=== PATIENT | male | born 1935 | race Caucasian/White ===

== ENCOUNTER 2018-11-12 15:54 | Emergency (ER) | payer MEDICARE, OTHER ==
[~2018-11-12] VITALS: Ht 170.2 cm; Wt 79.1 kg
[2018-11-12 16:21] VITALS: BP 139/75
[2018-11-12] MEDS ORDERED: TETanus/Pertussis (Acell)/Diphther VAC/PF (Tdap-Adult) 0.5ml syringe IM ONE (16:45)
[2018-11-12] MEDS ORDERED: LIDOcaine 1% w/EPI 1:200,000 injection 10mL vial IM ONE (16:45)
[2018-11-12] MEDS ORDERED: LIDOcaine 1% W/epiNEPHrine 1:100,000 20ml vial IJ ONE (16:50)
== END 2018-11-12 18:34 | disposition home or self-care (01) ==
LOC: ER 15:55
DX: S81.812A Laceration without foreign body, left lower leg, initial encounter (principal); Z88.2 Allergy status to sulfonamides; Z88.1 Allergy status to other antibiotic agents; Z88.8 Allergy status to other drugs, medicaments and biological substances; X58.XXXA Exposure to other specified factors, initial encounter; Y93.89 Activity, other specified; Y92.89 Other specified places as the place of occurrence of the external cause; Y99.8 Other external cause status
CPT/HCPCS: 12002; 73590; 90471; 99283

== ENCOUNTER 2019-02-23 10:55 | Emergency (ER) | payer MEDICARE, OTHER ==
[~2019-02-23] VITALS: Ht 170.2 cm; Wt 77.0 kg
[~2019-02-23 10:55] MED LIST: LIDOcaine 1% 30ml preserv. free vial ONE
[2019-02-23 11:04] VITALS: BP 149/78
[2019-02-23] MEDS ORDERED: DOXY100C2 PO (13:46)
== END 2019-02-23 13:59 | disposition home or self-care (01) ==
LOC: ER 10:56
DX: K61.1 Rectal abscess (principal); R05 Cough; J02.9 Acute pharyngitis, unspecified; R53.83 Other fatigue; I25.10 Atherosclerotic heart disease of native coronary artery without angina pectoris; Z95.0 Presence of cardiac pacemaker; Z88.2 Allergy status to sulfonamides; Z88.1 Allergy status to other antibiotic agents; Z79.899 Other long term (current) drug therapy
CPT/HCPCS: 46040; 71045; 99284; J2001

== ENCOUNTER 2019-02-25 11:28 | Emergency (ER) | payer MEDICARE, OTHER ==
[~2019-02-25] VITALS: Ht 170.2 cm; Wt 70.0 kg
[~2019-02-25 11:28] MED LIST changes: +DOXY100C2 PO; -LIDOcaine 1% 30ml preserv. free vial ONE
[2019-02-25 11:40] VITALS: BP 151/71
[2019-02-25] MEDS ORDERED: BENZ-16 PO (12:25)
== END 2019-02-25 12:45 | disposition home or self-care (01) ==
LOC: ER 11:30
DX: J40 Bronchitis, not specified as acute or chronic (principal); I25.10 Atherosclerotic heart disease of native coronary artery without angina pectoris; Z95.0 Presence of cardiac pacemaker; Z88.2 Allergy status to sulfonamides; Z88.1 Allergy status to other antibiotic agents; Z88.8 Allergy status to other drugs, medicaments and biological substances; Z79.899 Other long term (current) drug therapy
CPT/HCPCS: 99283

== ENCOUNTER 2019-07-09 13:45 | Outpatient (CLI) | payer MEDICARE, OTHER | END 2019-07-09 15:05 | disposition home or self-care (01) | LOC: WOUND CARE 13:45 → EDSTATUS 14:00 → WOUND CARE 15:05 | PROVIDERS: ATTEND Nurse Practitioner Family | DX: L89.890 Pressure ulcer of other site, unstageable (principal); I25.2 Old myocardial infarction; E78.5 Hyperlipidemia, unspecified; H26.9 Unspecified cataract; H93.19 Tinnitus, unspecified ear; F41.9 Anxiety disorder, unspecified; Z85.828 Personal history of other malignant neoplasm of skin; Z87.891 Personal history of nicotine dependence; Z95.0 Presence of cardiac pacemaker | CPT/HCPCS: G0463 ==

== ENCOUNTER 2019-07-29 18:30 | Emergency (ER) | payer MEDICARE, OTHER ==
[~2019-07-29] VITALS: Ht 170.2 cm; Wt 75.0 kg
[2019-07-29] MEDS ORDERED: CLIN150C8 PO (19:22)
[2019-07-29] MEDS ORDERED: ondansetron 4mg rapidly disintigrating tab PO ONE (19:25)
[2019-07-29] MEDS ORDERED: clindamycin 150mg capsule PO ONE (19:25)
[2019-07-29 19:48] VITALS: BP 155/79
== END 2019-07-29 19:40 | disposition home or self-care (01) ==
LOC: ER 18:30
DX: L03.116 Cellulitis of left lower limb (principal); T63.441A Toxic effect of venom of bees, accidental (unintentional), initial encounter; I25.10 Atherosclerotic heart disease of native coronary artery without angina pectoris; Z95.0 Presence of cardiac pacemaker; Z88.0 Allergy status to penicillin; Z88.2 Allergy status to sulfonamides; Z79.2 Long term (current) use of antibiotics; Y92.89 Other specified places as the place of occurrence of the external cause
CPT/HCPCS: 99283